=== PATIENT | female | born 1950 | race Native Hawaiian/Other Pacific Islander ===

== ENCOUNTER 2017-03-12 15:05 | Outpatient (CLI) | payer OTHER | END 2017-03-12 19:13 | disposition home or self-care (01) | LOC: RAD 15:05 | DX: M85.89 Other specified disorders of bone density and structure, multiple sites (principal) ==

== ENCOUNTER 2017-10-08 16:11 | Emergency (ER) | payer OTHER ==
[~2017-10-08] VITALS: Ht 160 cm; Wt 73.0 kg
[2017-10-08] MEDS ORDERED: HYDR200T3 PO (16:34)
[2017-10-08] MEDS ORDERED: TOPAMAX50 MG OR (16:35)
[2017-10-08] MEDS ORDERED: PANTPAK PO (16:35)
[2017-10-08] MEDS ORDERED: TIZA4TAB5 PO (16:36)
[2017-10-08 17:25] VITALS: BP 118/76; TEMP 97.2
== END 2017-10-08 17:25 | disposition home or self-care (01) ==
LOC: ED 16:11
DX: J32.0 Chronic maxillary sinusitis (principal); J32.1 Chronic frontal sinusitis; J40 Bronchitis, not specified as acute or chronic; J11.1 Influenza due to unidentified influenza virus with other respiratory manifestations
CPT/HCPCS: 96372; 99283; J0696; J2930

== ENCOUNTER 2017-10-25 13:08 | Outpatient (CLI) | payer OTHER ==
[~2017-10-25 13:08] MED LIST: HYDR200T3 PO; PANTPAK PO; TIZA4TAB5 PO; TOPAMAX50 MG OR
== END 2017-10-25 19:22 | disposition home or self-care (01) ==
LOC: RAD 13:08
DX: M06.4 Inflammatory polyarthropathy (principal); M54.5 Low back pain

== ENCOUNTER 2017-11-03 14:43 | Outpatient (CLI) | payer OTHER | END 2017-11-03 19:24 | disposition home or self-care (01) | LOC: MRI 14:43 | DX: M54.5 Low back pain (principal) ==

== ENCOUNTER 2018-12-21 13:07 | Outpatient (CLI) | payer OTHER | END 2018-12-21 19:23 | disposition home or self-care (01) | LOC: RESP 13:07 | DX: R05 Cough (principal) ==

== ENCOUNTER 2019-03-30 11:06 | Outpatient (CLI) | payer OTHER | END 2019-03-30 19:15 | disposition home or self-care (01) | LOC: LABW 11:06 | DX: R00.0 Tachycardia, unspecified (principal); R53.82 Chronic fatigue, unspecified; L65.8 Other specified nonscarring hair loss | CPT/HCPCS: 36415; 84436; 84443; 84480 ==

== ENCOUNTER 2019-07-31 17:12 | Outpatient (CLI) | payer OTHER | END 2019-07-31 20:10 | disposition home or self-care (01) | LOC: RAD 17:12 | DX: M54.5 Low back pain (principal) ==

== ENCOUNTER 2019-08-16 15:17 | Emergency (ER) | payer OTHER ==
[~2019-08-16] VITALS: Ht 157.5 cm; Wt 63.5 kg
[2019-08-16 15:46] LABS: PLATELET COUNT 106 K/uL (152-353)
[2019-08-16 15:56] LABS: POTASSIUM 3.6 mmol/L (3.6-5.2); SODIUM 142 mmol/L (136-145)
[2019-08-16 19:47] VITALS: BP 121/52; TEMP 98.2
== END 2019-08-16 19:47 | disposition home or self-care (01) ==
LOC: ED 15:17
PROVIDERS: Emergency Medicine
DX: R07.89 Other chest pain (principal)
CPT/HCPCS: 80053; 82550; 82553; 84484; 85027; 93005; 99284

== ENCOUNTER 2019-09-14 09:14 | Outpatient (CLI) | payer OTHER ==
[2019-09-14 10:03] LABS: POTASSIUM 3.8 mmol/L (3.6-5.2)
[2019-09-14 10:08] LABS: PLATELET COUNT 115 K/uL (152-353)
== END 2019-09-14 20:35 | disposition home or self-care (01) ==
LOC: LABW 09:14
PROVIDERS: Internal Medicine
DX: E56.8 Deficiency of other vitamins (principal); K11.7 Disturbances of salivary secretion; M79.7 Fibromyalgia; M81.0 Age-related osteoporosis without current pathological fracture; R07.89 Other chest pain; R06.02 Shortness of breath; M17.0 Bilateral primary osteoarthritis of knee
CPT/HCPCS: 36415; 80053; 80061; 82306; 82330; 83970; 85027; 85651; 86140; A9500

== ENCOUNTER 2019-09-29 11:17 | Outpatient (CLI) | payer OTHER | END 2019-09-29 19:10 | disposition home or self-care (01) | LOC: RAD 11:17 | DX: M81.0 Age-related osteoporosis without current pathological fracture (principal) ==

== ENCOUNTER 2021-05-05 09:30 | Outpatient (CLI) | payer OTHER | END 2021-05-05 13:00 | disposition home or self-care (01) | LOC: RAD 09:30 | PROVIDERS: ATTEND Nurse Practitioner Family | DX: E55.9 Vitamin D deficiency, unspecified (principal); E56.8 Deficiency of other vitamins; M81.0 Age-related osteoporosis without current pathological fracture ==

== ENCOUNTER 2023-05-04 10:51 | Outpatient (CLI) | payer OTHER | END 2023-05-04 19:10 | disposition home or self-care (01) | LOC: RAD 10:51 | PROVIDERS: ATTEND Nurse Practitioner Family | DX: M25.511 Pain in right shoulder (principal); M62.838 Other muscle spasm ==

== ENCOUNTER 2023-05-24 09:24 | Outpatient (CLI) | payer OTHER | END 2023-05-24 20:47 | disposition home or self-care (01) | LOC: RAD 09:24 | PROVIDERS: ATTEND Nurse Practitioner Family | DX: E55.9 Vitamin D deficiency, unspecified (principal); M47.896 Other spondylosis, lumbar region; M81.0 Age-related osteoporosis without current pathological fracture; M85.89 Other specified disorders of bone density and structure, multiple sites; Z79.899 Other long term (current) drug therapy ==